=== PATIENT | female | born 1995 | race Caucasian/White ===

== ENCOUNTER 2017-10-08 01:14 | Emergency (ER) | END 2017-10-08 02:16 | disposition home or self-care (01) ==

== ENCOUNTER 2018-10-31 12:38 | Emergency (ER) | payer OTHER ==
[~2018-10-31] VITALS: Ht 157.5 cm; Wt 75.3 kg
[~2018-10-31 12:38] MED LIST: ACET500C5 PO; CLIN300C10 PO; DIC20 PO; GUAI120S25 PO; IBUP-1542 PO; MED4DP PO; ONDA4TAB14 PO; PHEN-537 PO; SULF1TAB31 PO
[2018-10-31 12:41] VITALS: BP 136/64; PULSE 90; RESP 18; Ht 157.5 cm; Wt 75.3 kg
[2018-10-31] MEDS ORDERED: GUAIFENESIN/DM (SR) TAB PO ONE (13:00)
== END 2018-10-31 13:44 | disposition home or self-care (01) ==
LOC: FTE 12:38
DX: J03.90 Acute tonsillitis, unspecified (principal); H66.003 Acute suppurative otitis media without spontaneous rupture of ear drum, bilateral
CPT/HCPCS: 71045; Z7502; Z7610